=== PATIENT | female | born 1945 | race African-American/Black ===

== ENCOUNTER 2018-12-21 16:36 | Emergency (ER) | payer MEDICARE, MEDICAID ==
[~2018-12-21] VITALS: Ht 180.3 cm; Wt 96.4 kg
[~2018-12-21 16:36] MED LIST: ALBU8HFA IH; HYDR1CAP2 PO; LISI1TAB9 PO; PROM6.2514 PO; TIOT185 IH; TRAM50TA4 PO
[2018-12-21] MEDS ORDERED: IPRATROPIUM BROMIDE 0.5 MG/2.5 ML NEB SOLUTION NEB ONE (17:00)
[2018-12-21] MEDS ORDERED: ALBUTEROL SULFATE 2.5 MG/0.5 ML NEB SOLUTION NEB ONE (17:00)
[2018-12-21] MEDS ORDERED: ALBUTEROL SULFATE HFA 90 MCG/PUFF 8 GM INHALER IH ONE (17:45)
[2018-12-21 19:00] VITALS: BP 148/70
== END 2018-12-21 19:24 | disposition home or self-care (01) ==
LOC: EMS 16:37
DX: J44.9 Chronic obstructive pulmonary disease, unspecified (principal); I10 Essential (primary) hypertension; F17.210 Nicotine dependence, cigarettes, uncomplicated; Z88.5 Allergy status to narcotic agent
CPT/HCPCS: 94640; J3535